=== PATIENT | male | born 1990 | race Caucasian/White ===

== ENCOUNTER 2024-02-23 23:55 | Emergency (ER) | payer MEDICAID, OTHER ==
[~2024-02-23] VITALS: Ht 177.8 cm; Wt 70.0 kg
[2024-02-24 00:27] VITALS: BP 132/76; PULSE 82; RESP 82; TEMP 98.7; O2SAT 98
[2024-02-24] MEDS: TETRACAINE HCL 0.5% OPTH(EYE) SOLN 4ML EACHEYE ONE (01:23)
[2024-02-24] MEDS: FLUORESCEIN SOD OPTH TEST STRIP EACHEYE ONE (01:23)
[2024-02-24] MEDS ORDERED: ERYTHROMY OPTH OINT 5mg/gm 1gm or 3.5gm tube OP ONE (03:00)
[2024-02-24] MEDS ORDERED: ERY05OO OP (03:04)
[2024-02-24] MEDS: GENTAMICIN OPTH sol 0.3% 5ml EACHEYE ONE (03:15)
[2024-02-24] MEDS: TETANUS-DIPTH-ACEL PERTUSSIS 0.5ML SYR Tdap IM ONE (03:15)
== END 2024-02-24 03:25 | disposition home or self-care (01) ==
LOC: ER 23:55 → EDBD 23:55 → ER 02-24 03:25
DX: S05.02XA Injury of conjunctiva and corneal abrasion without foreign body, left eye, initial encounter (principal); S05.01XA Injury of conjunctiva and corneal abrasion without foreign body, right eye, initial encounter; X58.XXXA Exposure to other specified factors, initial encounter; Y93.89 Activity, other specified; Y92.89 Other specified places as the place of occurrence of the external cause; Y99.8 Other external cause status
CPT/HCPCS: 90471; 90715